=== PATIENT | male | born 1955 | race Caucasian/White ===

== ENCOUNTER 2022-06-01 14:00 | Outpatient (CLI) | payer BC ==
[2022-06-01] MEDS ORDERED: Iopamidol 370 76% 100 ML VIAL ONE (14:49)
== END 2022-06-01 14:01 | disposition home or self-care (01) ==
LOC: BICCT 14:00
PROVIDERS: ATTEND Internal Medicine Gastroenterology
DX: R10.9 Unspecified abdominal pain (principal); R50.9 Fever, unspecified; K42.9 Umbilical hernia without obstruction or gangrene
CPT/HCPCS: 74160; 82565; Q9967